=== PATIENT | male | born 1980 | race Caucasian/White ===

== ENCOUNTER 2017-09-25 09:35 | Emergency (ER) | payer OTHER ==
[2017-09-25] MEDS: SOD CHLORIDE 0.9% 1,000 ML IV (10:55)
== END 2017-09-25 12:20 | disposition home or self-care (01) ==
LOC: E/R 09:35
DX: R42 Dizziness and giddiness (principal); F17.210 Nicotine dependence, cigarettes, uncomplicated
CPT/HCPCS: 99284-25; J7030